=== PATIENT | male | born 1960 | race Native Hawaiian/Other Pacific Islander ===

== ENCOUNTER 2022-11-08 09:18 | Emergency (ER) | payer BC ==
[~2022-11-08] VITALS: Ht 180.3 cm; Wt 98.9 kg
[2022-11-08 12:35] VITALS: BP 150/89; TEMP 97.8
== END 2022-11-08 12:35 | disposition home or self-care (01) ==
LOC: ED 09:18
DX: M10.9 Gout, unspecified (principal)
CPT/HCPCS: 96372; 99283; J1100; J1885

== ENCOUNTER 2022-11-20 10:31 | Outpatient (CLI) | payer BC | END 2022-11-20 17:00 | disposition home or self-care (01) | LOC: RESP 10:31 | PROVIDERS: ATTEND Nurse Practitioner Family | DX: I10 Essential (primary) hypertension (principal) ==

== ENCOUNTER 2022-11-27 08:01 | Outpatient (CLI) | payer BC | END 2022-11-27 19:03 | disposition home or self-care (01) | LOC: NM 08:01 | PROVIDERS: ATTEND Nurse Practitioner Family | DX: I10 Essential (primary) hypertension (principal); Z79.899 Other long term (current) drug therapy | CPT/HCPCS: A9500 ==